=== PATIENT | female | born 1980 | race Caucasian/White ===

== ENCOUNTER 2016-10-17 23:58 | Outpatient (CLI) | payer OTHER | END 2016-10-18 02:24 | disposition home or self-care (01) | LOC: GENOP 23:58 | DX: O42.913 Preterm premature rupture of membranes, unspecified as to length of time between rupture and onset of labor, third trimester (principal); Z3A.35 35 weeks gestation of pregnancy | CPT/HCPCS: 81001; 83518; G0463 ==

== ENCOUNTER 2016-11-07 05:55 | Inpatient (IN) | payer OTHER ==
[~2016-11-07] VITALS: Ht 170.2 cm; Wt 64.9 kg
[2016-11-08 03:02] LABS: HEMOGLOBIN 10.2 gm/dl (12.3-15.3)
[2016-11-09] MEDS ORDERED: COLACE 100MG C100 MG PO (13:29)
== END 2016-11-09 13:52 | disposition home or self-care (01) | DRG 765 ==
LOC: OB 05:55
PROVIDERS: ADMIT Obstetrics & Gynecology
PROC: 3E0R3CZ (ICD-10-PCS; 2016-11-07)
PROC: 10D00Z1 Extraction of Products of Conception, Low, Open Approach (ICD-10-PCS; principal; 2016-11-07 07:30)
PROC: 3E0234Z Introduction of Serum, Toxoid and Vaccine into Muscle, Percutaneous Approach (ICD-10-PCS; 2016-11-08)
DX: O34.219 Maternal care for unspecified type scar from previous cesarean delivery (principal); O26.23 Pregnancy care for patient with recurrent pregnancy loss, third trimester; N85.8 Other specified noninflammatory disorders of uterus; O24.420 Gestational diabetes mellitus in childbirth, diet controlled; O09.523 Supervision of elderly multigravida, third trimester; O26.893 Other specified pregnancy related conditions, third trimester; Z67.31 Type AB blood, Rh negative; Z3A.38 38 weeks gestation of pregnancy; Z37.0 Single live birth; O99.613 Diseases of the digestive system complicating pregnancy, third trimester; K21.9 Gastro-esophageal reflux disease without esophagitis; K59.00 Constipation, unspecified; O99.89 Other specified diseases and conditions complicating pregnancy, childbirth and the puerperium; M85.80 Other specified disorders of bone density and structure, unspecified site; O99.343 Other mental disorders complicating pregnancy, third trimester; F32.9 Major depressive disorder, single episode, unspecified; Z23 Encounter for immunization; Z79.899 Other long term (current) drug therapy; Z80.8 Family history of malignant neoplasm of other organs or systems; Z80.9 Family history of malignant neoplasm, unspecified; Z83.3 Family history of diabetes mellitus; Z83.49 Family history of other endocrine, nutritional and metabolic diseases; Z82.49 Family history of ischemic heart disease and other diseases of the circulatory system; Z82.5 Family history of asthma and other chronic lower respiratory diseases; Z84.89 Family history of other specified conditions
CPT/HCPCS: 36415; 36600; 80048; 81001; 82800; 82962; 85014; 85018; 85025; 85461; 86900; 86901; 90715; C9113; J0690; J2274; J2405; J2590; J2765; J3010; J7030; J7120

== ENCOUNTER 2021-01-09 20:54 | Emergency (ER) | payer OTHER ==
[~2021-01-09 20:54] MED LIST: AUGMENTIN 875-1 EACH PO; COLACE 100MG C100 MG PO; NAPROSYN500 MG PO
[2021-01-09 21:44] LABS: HEMOGLOBIN 14.7 gm/dl (12.3-15.3); RED BLOOD COUNT 4.81 M/UL (4.00-5.10); WHITE BLOOD COUNT 6.2 K/UL (4.5-11.0)
[2021-01-09 22:01] LABS: BUN/CREATININE RATIO 22 (0-10)
[2021-01-09] MEDS ORDERED: LODINE CAP 300300 MG PO (23:23)
[2021-01-09] MEDS ORDERED: ZOFRAN ODT 4 MG4 MG PO (23:23)
[2021-01-09] MEDS ORDERED: BENTYL 20MG TAB20 MG PO (23:23)
== END 2021-01-09 23:32 | disposition home or self-care (01) ==
LOC: ER1 20:54
DX: R10.31 Right lower quadrant pain (principal)
CPT/HCPCS: 80053; 81001; 83690; 84703; 85025; 87086; 99284; Q9967

== ENCOUNTER → 2021-04-29 | Outpatient (CLI) | payer OTHER ==
[~2021-04-29] MED LIST changes: +BENTYL 20MG TAB20 MG PO; +LODINE CAP 300300 MG PO; +ZOFRAN ODT 4 MG4 MG PO
== END ==
LOC: KOH-I 12:20
DX: S81.852D Open bite, left lower leg, subsequent encounter (principal); S81.851D Open bite, right lower leg, subsequent encounter; W54.0XXD Bitten by dog, subsequent encounter; I73.9 Peripheral vascular disease, unspecified; R20.9 Unspecified disturbances of skin sensation
CPT/HCPCS: 93925

== ENCOUNTER → 2021-10-29 | Outpatient (CLI) | payer MEDICARE | LOC: EXRD 10:42 | DX: M79.671 Pain in right foot (principal) | CPT/HCPCS: 73630 ==

== ENCOUNTER → 2022-01-25 | Outpatient (CLI) | payer MEDICARE | LOC: KOH-I 09:08 | DX: M54.16 Radiculopathy, lumbar region (principal) | CPT/HCPCS: 72110 ==

== ENCOUNTER → 2022-04-27 | Outpatient (CLI) | payer MEDICARE | LOC: EMI 12:54 | DX: M54.16 Radiculopathy, lumbar region (principal) | CPT/HCPCS: 72148 ==